=== PATIENT | male | born 1950 | race Caucasian/White ===

== ENCOUNTER 2025-01-09 21:10 | Emergency (ER) | payer MEDICARE, OTHER, SELFPAY ==
[2025-01-09 21:15] VITALS: BP 160/97
[2025-01-09 23:17] VITALS: BMI 26.4
[2025-01-09 23:23] VITALS: BP 142/83
--- NOTE | 2025-01-10 00:22 | ED.GENMED ---
History of Present Illness
General
Chief Complaint: Nose Bleed
Source: patient
Exam Limitations: none
Time Seen by Provider: 01/09/25 23:05
Nursing documentation reviewed up to this point in time: agreed with
History of Present Illness
History of Present Illness:
74-year-old male past medical history of NIDDM, hyperlipidemia presenting to the emergency department today with intermittent nosebleed over the past few days. Had recurrence of nosebleed today was seen in urgent care and had silver nitrate
cauterization twice this week. Denies being on blood thinners denies any history of such.
Review of Systems
Review of Systems
Allergies reviewed?: Yes
All Other Systems: ROS reviewed and negative except as documented in HPI and ROS
Phy Exam
Physical Exam
Physical Exam:
GENERAL: Alert , in no apparent distress
EYE: pupils equal and reactive
NECK: Supple, no significant adenopathy.
ENT: Left nasal septum with small area of redness and small clot no active bleeding o/p clr, mmm.
CARDIAC: Regular rate and rhythm .
LUNGS: Clear breath sounds bilaterally, no acute respiratory distress, no wheezes/rales/rhonchi
ABDOMEN: Soft, without focal tenderness, no r/g, no cvat
NEUROLOGICAL: Alert and oriented, no focal neuro deficits
SKIN: Warm and dry, skin intact.
MUSCULOSKELETAL: No edema, well perfused.
PSYCH: Normal and appropriate interaction.
Course
Vital Signs
Initial and Last Documented VS:
Initial Vital Signs
Pulse Resp BP Pulse Ox
93 18 160/97 98
01/09/25 21:15 01/09/25 21:15 01/09/25 21:15 01/09/25 21:15
Last Documented Vital Signs
Pulse Resp BP Pulse Ox
93 18 142/83 97
01/09/25 21:15 01/09/25 21:15 01/09/25 23:23 01/09/25 23:23
Procedures
Nosebleed
Drug treatment: Neosynephrine
Treatment: Silver nitrate cautery
Post treatment bleeding: none- good control
MDM/Problems Addressed
MDM/Problems Addressed:
74-year-old male presenting to the emergency department today with concerns of intermittent nosebleed to the left nostril throughout the week this week. Episode at home prior to arrival. He did use Afrin and a cottonball prior to arrival. Denies
being on blood thinner. Does have a small area of irritation to the left nasal septum this was cauterized no active bleeding here stable for outpatient follow-up. Return precautions given.
*Pulse Oximetry
SaO2: 97
Oxygen Mode of Delivery: Room air
Patient hypoxic: no (97)
*Critical Care Note
Total Time (30-74mins, 75-104mins- exclusive of procedures): Not Applicable
ED Attending Note
-
Portions of this chart may have been created with voice recognition software.� Occasional wrong word or��sound alike� substitutions may have occurred due to the inherent limitations of voice recognition software.
Discharge Plan
Departure
Patient Disposition: Home (Routine Discharge)
Date of Disposition: 01/10/25
Time of Disposition: 00:25
Patient with high blood pressure during this ER visit?: No
Condition: Good
Covid-19: Not Applicable
Discharge Problem:
Acute anterior epistaxis
Instructions: Nosebleeds (DC)
Referrals:
Navid Barnes MD [Active, Otology] - Follow up in 10 days
Rajiv Mark MD [Family Provider, Family Practice]
Activity Restrictions/Additional Instructions:
You came to the emergency department today with concerns of ongoing nosebleed. Here you had additional cauterization you have persistent symptoms please follow-up closely with ENT. Return for any worsening, new or concerning symptoms.
Interventions
Interventions:
*Risk Screen - Suicide Last Done: 01/09/25 21:15
*General Assessment Last Done: 01/09/25 21:15
*Neglect/Abuse Screening Last Done: 01/09/25 21:15
*ED COVID-19 Vaccine History Last Done: 01/09/25 21:15
*ED Influenza Vaccine History Last Done: 01/09/25 21:15
ED-EENT Assessment Last Done: 01/09/25 23:22
Discharge Date and Time
Print Language: MONTSERRATIAN
[2025-01-10] MEDS: ATARAX 25 MG PO (00:41)
== END 2025-01-10 00:49 | disposition home or self-care (01) ==
LOC: EMR 21:10
PROVIDERS: EMERGENCY PHYSICIAN Emergency Medicine; FAMILY PHYSICIAN Family Medicine
DX: R04.0 Epistaxis (principal); E11.9 Type 2 diabetes mellitus without complications; E78.5 Hyperlipidemia, unspecified
CPT/HCPCS: 99283; 30901